=== PATIENT | male | born 2000 | race Caucasian/White ===

== ENCOUNTER 2022-04-29 07:36 | Emergency (ER) | payer OTHER ==
[~2022-04-29] VITALS: Ht 188 cm; Wt 81.8 kg
[2022-04-29 07:36] VITALS: BP 134/85
[2022-04-29] MEDS ORDERED: GI COCKTAIL 50ML BTL(HYOSCYAMINE/MAALOX/LIDOCAINE VISCOUS)(1:3:1) PO ONE (09:15)
[2022-04-29] MEDS ORDERED: KETOROLAC 60MG 2ML VIAL IM ONE (09:15)
[2022-04-29 09:53] LABS: BASO % 0.4 % (0.0-1.0); EOS # 0.1 10^3/uL (0.0-0.5); EOS % 1.5 % (0.0-3.0); HEMATOCRIT 48.3 % (42.0-52.0); HEMOGLOBIN 16.5 g/dl (13.5-17.5); LYMPH # 1.7 10^3/uL (1.5-5.0); LYMPH % 32.7 % (24.0-44.0); MEAN CORPUSCULAR HEMOGLOBIN 30.3 pg (27.0-33.0); MEAN CORPUSCULAR HGB CONC 34.2 g/dl (32.0-36.5); MEAN CORPUSCULAR VOLUME 88.8 fl (80.0-96.0); MONO # 0.5 10^3/uL (0.0-0.8); MONO % 8.5 % (2.0-8.0); NEUTROPHILS % 56.7 % (36.0-66.0); PLATELET COUNT, AUTOMATED 230 10^3/uL (150-450); RED BLOOD COUNT 5.44 10^6/uL (4.30-6.10); WHITE BLOOD COUNT 5.3 10^3/uL (4.0-10.0)
[2022-04-29 10:18] LABS: ALBUMIN 4.5 GM/DL (3.2-5.2); BILIRUBIN,DIRECT 0.2 MG/DL (0.0-0.2); BILIRUBIN,TOTAL 1.2 MG/DL (0.2-1.0); TOTAL PROTEIN 7.5 GM/DL (6.4-8.2)
[2022-04-29] MEDS ORDERED: OMEP-173 PO (10:58)
[2022-04-29] MEDS ORDERED: OMEPRAZOLE 20MG CAP PO ONE (11:00)
== END 2022-04-29 11:20 | disposition home or self-care (01) ==
LOC: M ED 07:36
DX: R07.9 Chest pain, unspecified (principal); R00.1 Bradycardia, unspecified; F17.200 Nicotine dependence, unspecified, uncomplicated
CPT/HCPCS: 71046; 80047; 80076; 83690; 84484; 85025; 85379; 93005; 96372; 99284; J1885

== ENCOUNTER 2022-12-28 22:57 | Emergency (ER) | payer OTHER ==
[~2022-12-28] VITALS: Ht 188 cm; Wt 79.8 kg
[~2022-12-28 22:57] MED LIST: OMEP-173 PO
[2022-12-29 02:39] LABS: GC DNA AMPLIFICATION NEGATIVE (NEGATIVE)
[2022-12-29 03:11] VITALS: BP 130/79
== END 2022-12-29 03:12 | disposition home or self-care (01) ==
LOC: M ED 22:57
DX: N50.3 Cyst of epididymis (principal); R31.0 Gross hematuria; F17.200 Nicotine dependence, unspecified, uncomplicated; F10.10 Alcohol abuse, uncomplicated; Z79.83 Long term (current) use of bisphosphonates

== ENCOUNTER 2025-04-26 05:09 | Emergency (ER) | payer OTHER ==
[~2025-04-26] VITALS: Ht 188 cm; Wt 82.1 kg
[2025-04-26] MEDS: LIDOCAINE 5% PATCH TD ONE (10:41)
[2025-04-26] MEDS: KETOROLAC 30 MG/ML 1 ML VIAL IM ONE (10:41)
[2025-04-26 11:45] VITALS: BP 130/84; TEMP 97.7; O2SAT 100
[2025-04-26] MEDS ORDERED: METH-1164 PO (12:18)
[2025-04-26] MEDS ORDERED: IBUP-1022 PO (12:18)
[2025-04-26] MEDS ORDERED: LIDO1ADH93 TD (12:18)
== END 2025-04-26 12:26 | disposition home or self-care (01) ==
LOC: M ED 05:09
DX: S39.012A Strain of muscle, fascia and tendon of lower back, initial encounter (principal); X50.0XXA Overexertion from strenuous movement or load, initial encounter; Z79.1 Long term (current) use of non-steroidal anti-inflammatories (NSAID); Z79.899 Other long term (current) drug therapy; Y92.9 Unspecified place or not applicable; Y93.89 Activity, other specified; Y99.9 Unspecified external cause status
CPT/HCPCS: 96372; 99283; J1885